=== PATIENT | male | born 1955 | race Caucasian/White ===

== ENCOUNTER 2017-10-19 10:57 | Inpatient (IN) | payer OTHER ==
[~2017-10-19] VITALS: Ht 172.7 cm; Wt 107.1 kg
[2017-10-19] VITALS (7 sets, daily range): BP systolic 129–184; BP diastolic 88–122
--- NOTE | ~2017-10-19 | EKG ---
[place], [place] ELECTROCARDIOGRAM REPORT NAME: BELEN ANDRADE UNIT #: [id number] ROOM: 402 DOCTOR: ANASTASIA GOODE,TERRY BIRTHDATE: [birth year] DOS: 10/19/2017 TIME: 1415 hours. IMPRESSION: 1. Sinus rhythm. 2. Frequent supraventricular ectopy. 3. Nonspecific ST-T changes. TERRY OCONNOR MD CM:EKGRPT:ELECTROCARDIOGRAM REPORT 1352 1604 TERRY OCONNOR MD
--- NOTE | ~2017-10-19 | EKG ---
[place], [place] ELECTROCARDIOGRAM REPORT NAME: BELEN ANDRADE UNIT #: [id number] ROOM: 402 DOCTOR: ANASTASIA GOODE,TERRY BIRTHDATE: [birth year] DOS: 10/19/2017 IMPRESSION: 1. Atrial fibrillation. 2. Ventricular ectopy. 3. Supraventricular ectopy. 4. Baseline artifact. TERRY OCONNOR MD CM:EKGRPT:ELECTROCARDIOGRAM REPORT 1421 [id number] TERRY OCONNOR MD
--- NOTE | ~2017-10-19 | EKG ---
[place], [place] ELECTROCARDIOGRAM REPORT NAME: BELEN ANDRADE UNIT #: [id number] ROOM: 402 DOCTOR: ANASTASIA GOODE,TERRY BIRTHDATE: [birth year] DOS: 10/19/2017 TIME: 1733 hours. IMPRESSION: 1. Sinus rhythm. 2. Frequent supraventricular ectopy. 3. Normal QT interval. TERRY OCONNOR MD CM:EKGRPT:ELECTROCARDIOGRAM REPORT 1352 1605 TERRY OCONNOR MD
[2017-10-19 11:23] LABS: EOS # 0.2 10*3/uL (0.0-0.4); EOS % 4.7 % (1.0-4.0); HEMATOCRIT 43.7 % (42.0-52.0); HEMOGLOBIN 14.9 g/dl (14.0-18.0); LYMPH # 1.5 10*3/uL (1.3-4.4); LYMPH % 35.5 % (27.0-41.0); MEAN CELL VOLUME 105.8 fl (80.0-94.0); MEAN CORPUSCULAR HGB 36.1 pg (27.0-31.0); MEAN CORPUSCULAR HGB CONC 34.1 g/dl (33.0-37.0); MEAN PLATELET VOLUME 10.3 fl (9.6-12.3); MONO # 0.5 10*3/uL (0.1-1.0); MONO % 11.8 % (3.0-9.0); NEUT # 1.9 10*3/uL (2.3-7.9); NEUT % 46.5 % (47.0-73.0); PLATELET COUNT AUTOMATED 249 10*3/uL (130-400); RED BLOOD COUNT 4.13 10*6/uL (4.50-5.90); RED CELL DISTRI WIDTH 14.5 % (0-14.5); WHITE BLOOD COUNT 4.1 10*3/uL (4.8-10.8)
[2017-10-19 11:32] LABS: ACT PARTIAL THROMBO TIME 25.1 SECONDS (20.8-31.5)
[2017-10-19 11:39] LABS: ALBUMIN 3.4 gm/dl (3.1-4.5); ALKALINE PHOSPHATASE 64 U/L (45-117); BUN 9 mg/dl (7-24); CHLORIDE 108 mmol/L (98-107); CREATININE 1.14 mg/dL (0.70-1.30); LIPASE 232 U/L (73-393); POTASSIUM 4.2 mmol/L (3.5-5.1); SGOT/AST 27 IU/L (3-35); SGPT/ALT 36 U/L (12-78); SODIUM 143 mmol/L (136-145); TOTAL PROTEIN 7.5 gm/dL (6.4-8.2)
[2017-10-19 11:40] LABS: TROPONIN I < 0.015 ng/ml (<0.045)
[2017-10-19] MEDS ORDERED: ASPIRIN CHILDRE81 MG PO (14:43)
[2017-10-19] MEDS ORDERED: AMLODIPINE BESYL5 MG PO (14:44)
[2017-10-19] MEDS ORDERED: NATURE'S BLEND F1 MG PO (14:44)
[2017-10-19] MEDS ORDERED: PEPCID20 MG PO (14:44)
[2017-10-19] MEDS ORDERED: METOPROLOL SUC100 M2 PO (14:45)
[2017-10-19] MEDS ORDERED: PAROXETINE40 MG PO (14:45)
[2017-10-19] MEDS ORDERED: VITAMIN B150 MG PO (14:45)
[2017-10-19 15:46] LABS: BILIRUBIN NEGATIVE (NEGATIVE); BLOOD NEGATIVE (NEGATIVE); CLARITY SL CLOUDY (CLEAR); COLOR YELLOW (YELLOW); GLUCOSE NEGATIVE (NEGATIVE); KETONE TRACE (NEGATIVE); LEUKO ESTERASE NEGATIVE (NEGATIVE); NITRITE NEGATIVE (NEGATIVE); SPECIFIC GRAVITY >= 1.030 (1.005-1.030); UROBILINOGEN 0.2 E.U./dl (0.2-1.0)
[2017-10-19 15:52] LABS: RBC 0-2 rbc/hpf (0-2)
[2017-10-19 15:53] LABS: BACTERIA 1+; EPITHELIAL CELLS 0-2
[2017-10-20] VITALS: BP 128/90
[2017-10-20 04:00] VITALS: BP 146/90
[2017-10-20 06:23] LABS: BASO # 0.1 10*3/uL (0.0-0.1); BASO % 1.1 % (0.0-1.0); EOS # 0.2 10*3/uL (0.0-0.4); EOS % 3.4 % (1.0-4.0); HEMATOCRIT 40.4 % (42.0-52.0); HEMOGLOBIN 13.6 g/dl (14.0-18.0); LYMPH % 41.5 % (27.0-41.0); MEAN CORPUSCULAR HGB 35.7 pg (27.0-31.0); MEAN CORPUSCULAR HGB CONC 33.7 g/dl (33.0-37.0); MONO # 0.6 10*3/uL (0.1-1.0); MONO % 13.1 % (3.0-9.0); NEUT # 1.9 10*3/uL (2.3-7.9); NEUT % 40.9 % (47.0-73.0); PLATELET COUNT AUTOMATED 261 10*3/uL (130-400); RED BLOOD COUNT 3.81 10*6/uL (4.50-5.90); RED CELL DISTRI WIDTH 14.6 % (0-14.5); WHITE BLOOD COUNT 4.7 10*3/uL (4.8-10.8)
[2017-10-20 06:46] LABS: ALKALINE PHOSPHATASE 57 U/L (45-117); BUN 10 mg/dl (7-24); CHLORIDE 108 mmol/L (98-107); CHOLESTEROL 154 mg/dL (<200); CREATININE 0.99 mg/dL (0.70-1.30); FREE T4 1.11 ng/dl (0.76-1.46); HDL CHOLESTEROL 34 mg/dl (40-60); LDL CHOLESTEROL 94 mg/dL (9-159); PHOSPHOROUS 3.1 mg/dL (2.5-4.9); POTASSIUM 4.1 mmol/L (3.5-5.1); SGOT/AST 22 IU/L (3-35); SGPT/ALT 34 U/L (12-78); SODIUM 141 mmol/L (136-145); TOTAL PROTEIN 6.7 gm/dL (6.4-8.2); TRIGLYCERIDES 130 mg/dl (<150); VLDL CHOLESTEROL 26 mg/dL (6-40)
[2017-10-20 08:00] VITALS: BP 142/87
[2017-10-20 09:40] LABS: VITAMIN D, 25-HYDROXY 20.5 ng/mL (30-100)
[2017-10-20 12:00] VITALS: BP 144/81
[2017-10-20] MEDS ORDERED: VITAMIN D-32000 UNI1 PO (15:18)
== END 2017-10-20 19:04 | disposition home or self-care (01) | DRG 392 ==
LOC: ED 10:57 → 4E 14:01 → EDHOLD 14:01 → 4E 14:03
PROVIDERS: Emergency Medicine; Internal Medicine
DX: K21.9 Gastro-esophageal reflux disease without esophagitis (principal); E44.0 Moderate protein-calorie malnutrition; D64.9 Anemia, unspecified; F10.10 Alcohol abuse, uncomplicated; I10 Essential (primary) hypertension; G47.33 Obstructive sleep apnea (adult) (pediatric); F32.9 Major depressive disorder, single episode, unspecified; F41.9 Anxiety disorder, unspecified; E66.9 Obesity, unspecified; E55.9 Vitamin D deficiency, unspecified; M54.5 Low back pain; E78.5 Hyperlipidemia, unspecified; M94.0 Chondrocostal junction syndrome [Tietze]; J20.9 Acute bronchitis, unspecified; D72.819 Decreased white blood cell count, unspecified; R73.9 Hyperglycemia, unspecified; Z88.8 Allergy status to other drugs, medicaments and biological substances; Z79.82 Long term (current) use of aspirin; Z79.899 Other long term (current) drug therapy; Z98.52 Vasectomy status; Z82.49 Family history of ischemic heart disease and other diseases of the circulatory system; Z68.35 Body mass index [BMI] 35.0-35.9, adult